=== PATIENT | female | born 1980 | race Caucasian/White ===

== ENCOUNTER 2019-08-23 15:54 | Observation (INO) | payer OTHER ==
--- NOTE | 2019-08-23 16:24 | PDOC ---
History of Present Illness - General Chief Complaint: Chest Pain Stated Complaint: CHEST TIGHTNESS Time Seen by Provider: 08/23/19 16:23 Past History - Past Medical History Allergies/Adverse Reactions: Allergies Allergy/AdvReac Type Severity Reaction Status Date / Time iv contrast Allergy Uncoded 08/23/19 16:18 Home Medications: Ambulatory Orders Aspirin 1 tab PO DAILY 08/23/19 Atorvastatin Calcium 80 mg PO HS 08/23/19 Clopidogrel Bisulfate [Clopidogrel] 75 mg PO DAILY 08/23/19 Empagliflozin [Jardiance] 1 tab PO DAILY 08/23/19 Empagliflozin/Metformin HCl [Synjardy Xr 5-1,000 mg Tablet] 2 tab PO DAILY 08/22 Heart Score/ECG Review - History History: Moderately suspicious - Electrocardiogram EKG: Normal - Age Age: </= 45 - Risk Factors Risk Factors Heart Score: Yes Hx Hypertension, Yes Hx Diabetes, Yes Positive family hx of cardiac disease, Yes Hx Obesity Based on the list above the patient has:: >/=3 risk factors or Hx atherosclerotic disease - Troponin Troponin: </= normal limit - Score Heart Score - Total: 3 ED Treatment Course - LABORATORY CBC & Chemistry Diagram: 08/23/19 16:35 08/23/19 16:35 Medical Decision Making - Medical Decision Making 08/23/19 16:26 HPI: 39yo F hx CAD (s/p 3 stents in 2018 at [facility]), smoking (5/day), asthma (never used meds), HTN (noncompliant with meds x>1yr due to making it drop her BP too much), FHx early CAD, and DM (noncompliant with meds x1mo due to thinking she was ) presents with 1hr of gradual onset at rest at 1430 diffuse nonradiating chest pressure intermittent improving, with associated SOB/WATSON, pinch of top of L head (resolved), lightheadedness (resolved), and tingling in b /l feet and L hand (improving), all s/p 20 shots of unknown hard alcohol last PM and poor sleep; similar sx to 02/2019 when she was dehydrated. Pt states normally drinks rarely, never this much. Pt took 2 baby aspirin (162 total) today, one at 1100 and one at 1300, because she "felt tired." No other meds taken today. Eating and drinking normally. Denies hx DVT/PE, leg swelling, calf tenderness, recent travel, recent surgeries, diaphoresis, drug use, N/V, cough, recent illness, abdominal pain, back pain, syncope, dizziness, fever, chills, vision changes, palpitations. PCP - unknown name at [facility] ROS: Constitutional: Positive for fatigue. Negative for chills, fever, diaphoresis. HENT: Negative for sore throat, rhinorrhea, congestion. Eyes: Negative for visual disturbance. Respiratory: Positive for shortness of breath. Negative for cough, and wheezing. Cardiovascular: Positive for chest pain. Negative for palpitations, and leg swelling. Gastrointestinal: Negative for abdominal pain, blood in stool, constipation, diarrhea, nausea, and vomiting. Genitourinary: Negative for dysuria, flank pain, and hematuria. Musculoskeletal: Negative for myalgias, back pain, and neck pain. Skin: Negative for rash. Neurological: Positive for headache, light-headedness, tingling. Negative for dizziness, vertigo, syncope, weakness. Psychiatric/Behavioral: Negative for behavioral problems and confusion. PE: Gen: Sleepy but alert, NAD, tired-appearing. HEENT: PERRL, EOMI, MMM, NCAT. No conjunctival pallor. Sclera are non-icteric. CV: Regular rate and rhythm. No murmurs, rubs, or gallops. PULM: No resp distress. CTAB, no wheezes, rales, or rhonchi. ABD: soft, NT/ND, no rebound tenderness or guarding, no CVA tenderness. BACK: No TTP of c/t/l-spine. No step-offs or deformities. MSK: No bony deformities. 2+ pulses in all extremities. NEURO: AAOx3. PERRL. No gross CN deficits. Strength and sensation grossly intact throughout. EXTREMITIES: No cyanosis. No clubbing. No edema. No calf tenderness. PSYCH: Normal mood and thought pattern. Odd affect. SKIN: Warm and dry. Normal capillary refill. No rashes. No jaundice. MDM: 39yo F hx CAD (s/p 3 stents in 2018 at [facility]), smoking (5/day), asthma (never used meds), HTN (noncompliant with meds x>1yr due to making it drop her BP too much), FHx early CAD, and DM (noncompliant with meds x1mo due to thinking she was ) presents with 1hr of gradual onset at rest at 1430 diffuse nonradiating chest pressure intermittent improving, with associated SOB/WATSON, pinch of top of L head (resolved), lightheadedness (resolved), and tingling in b /l feet and L hand (improving), all s/p 20 shots of unknown hard alcohol last PM and poor sleep; similar sx to 02/2019 when she was dehydrated. Hemodynamically stable, afebrile, lungs CTAB, sleepy but alert. Ddx: ACS/FL (HEART score 3 due to RFs and story), arrhythmia, CHF, PE (low risk , r/o w/D-dimer), pancreatitis, costochondritis, gastritis, cholelithiasis/ cystitis, intox, infection, metabolic derangement, anemia -EKG -CXR -CBC,CMP,Coags,Cardiac profile,Lipase, , d-dimer, BNP -Nitro -IVF -Pain management -Dispo: pending workup and reassessment, likely admit tele obs 08/23/19 18:31 EKG reviewed: NSR, 71bpm, normal axis, normal intervals, no e/o acute ischemia. CXR reviewed: no acute pathology Labs reviewed. No concerning findings. Pain improved s/p nitro. Pt refuses admission at this time due to children at home. Would like to wait for 2nd troponin result and then decide admission vs AMA. 08/23/19 18:48 Pt agrees to be admitted. Microblog sent. 08/23/19 19:04 Pt signed out to Dr Leslie and night team. Discharge - Discharge Information Problems reviewed: Yes Clinical Impression/Diagnosis: Chest pain Condition: Improved - Admission Yes - Follow up/Referral Referrals: ON STAFF,NOT [Primary Care Provider] - - Patient Discharge Instructions - Post Discharge Activity
[2019-08-23 16:34] VITALS: TEMP 98; BMI 30.5
[2019-08-23] MEDS ORDERED: NITROGLYCERIN 2% OINTMENT - 1GM PACKET TD ONE (16:37)
[2019-08-23 16:54] LABS: BASO % 0.6 % (0-2.0); EOS % 0.5 % (0-4.5); HEMATOCRIT 38.1 % (32.4-45.2); HEMOGLOBIN 13.1 GM/dL (10.7-15.3); LYMPH % 27.2 % (8-40); MCHC 34.4 g/dl (32.0-36.0); MEAN CELL VOLUME 90.2 fl (80-96); MEAN PLT VOLUME 9.9 fl (7.5-11.1); MONO % 7.1 % (3.8-10.2); NEUT % 64.6 % (42.8-82.8); PLATELET COUNT 232 K/MM3 (134-434); RBC 4.23 M/mm3 (3.60-5.2); RDW 13.1 % (11.6-15.6)
[2019-08-23 17:12] VITALS: BP 123/75; PULSE 71
[2019-08-23 17:24] LABS: N-TERMINAL BNP 48.4 pg/ml (5-125); PROTHROMBIN TIME (PATIENT) 11.8 SEC (9.7-13.0)
[2019-08-23 17:25] LABS: ACTIVATED PTT 24.6 SECONDS (25.2-36.5)
[2019-08-23 17:33] LABS: ALBUMIN 3.5 g/dl (3.4-5.0); BILIRUBIN,TOTAL 0.3 mg/dL (0.2-1); CALCIUM 8.7 mg/dL (8.5-10.1); CREATININE 0.6 mg/dL (0.55-1.3); POTASSIUM 3.9 mmol/L (3.5-5.1); TOT PROT 7.1 g/dl (6.4-8.2)
[2019-08-23 17:56] LABS: LIPASE 185 U/L (73-393)
[2019-08-23] MEDS ORDERED: SODIUM CHLORIDE 0.9% 1000 ML INFUS.BAG IV ONE (18:34)
--- NOTE | 2019-08-23 18:56 | PDOC ---
Attending Attestation - Resident Resident Name: WilliamScott - ED Attending Attestation I have performed the following: I have examined & evaluated the patient, The case was reviewed & discussed with the resident, I agree w/resident's findings & plan - HPI HPI: 08/23/19 18:56 39yo F hx CAD (s/p 3 stents in 2018 at [facility]), smoking (5/day), asthma (never used meds), HTN (noncompliant with meds x>1yr due to making it drop her BP too much), FHx early CAD, and DM (noncompliant with meds x1mo due to thinking she was ) presents with 1hr of gradual onset at rest at 1430 diffuse nonradiating chest pressure intermittent improving, with associated SOB/WATSON, pinch of top of L head (resolved), lightheadedness (resolved), and tingling in b /l feet and L hand (improving), all s/p 20 shots of unknown hard alcohol last PM and poor sleep; similar sx to 02/2019 when she was dehydrated. Pt states normally drinks rarely, never this much. Pt took 2 baby aspirin (162 total) today, one at 1100 and one at 1300, because she "felt tired." No other meds taken today. Eating and drinking normally. Denies hx DVT/PE, leg swelling, calf tenderness, recent travel, recent surgeries , diaphoresis, drug use, N/V, cough, recent illness, abdominal pain, back pain, syncope, dizziness, fever, chills, vision changes, palpitations. - Physicial Exam PE: 08/23/19 18:56 Agree with the resident's HPI and PE as documented in the electronic medical record. NAD, malaised appearing. EOMI, PERRL, nl conjunctiva, anicteric; neck supple. lungs clear, RRR, no murmur. abdomen soft nontender. no rebound, guarding. Back nontender. LEONARDO x4, no focal neuro deficits. No peripheral edema. normal color for ethnicity, WWP. speech clear. - Medical Decision Making 08/23/19 18:55 Vital Signs Temp Pulse Resp BP Pulse Ox 98 F 71 17 123/75 99 08/23/19 16:21 08/23/19 17:11 08/23/19 17:11 08/23/19 17:11 08/23/19 17:11 DDx chest pain: ACS, coronary vasospasm, printzmetal's, NSTEMI, arrhythmia, unstable angina, PE, dissection, PUD, esophageal spasm, GERD, gastritis, costochondritis, pneumonia, pleurisy, pericarditis/myocarditis. dehydration, electrolyte/metabolic derangements. PTX, CHF, pulmonary edema, pleurisy, pneumonia, viral syndrome. effusion. anemia, electrolyte/metabolic derangements. drug intox, sympathomimetic agent labs and lytes wnl. trop is neg, reassuring, needs serials/ekg and tele monitor. EKG normal sinus rhythm, no interval abnormalities, narrow QRS, ST and T wave segments and morphology normal. Nonspecific T wave abnormalities, no prior Chest pain HEART score 3 which denotes low risk and probability for ACS, risk of 1.7% of MACE at 4-6 wks Given risk factors including comorbidities, gender, family and tobacco use, pt has higher risk, given also prior history of CAD with PCI Plan for admit observation, possible Stress testing, to r/o ischemia, CORINNA, serial trops and EKG/tele monitoring. s/p ASA, pain controlled, discussion with patient and family at bedside, made aware of impression and plan, questions answered. 08/23/19 18:55 08/23/19 18:57 08/23/19 18:58 Heart Score/ECG Review - History History: Moderately suspicious - Electrocardiogram EKG: Normal - Age Age: </= 45 - Risk Factors Risk Factors Heart Score: Yes Hx Diabetes, Yes Positive family hx of cardiac disease, Yes Hx Obesity Based on the list above the patient has:: >/=3 risk factors or Hx atherosclerotic disease - Troponin Troponin: </= normal limit - Score Heart Score - Total: 3 #1 ECG reviewed & interpreted by me at: 16:10 General ECG Interpretation: Sinus Rhythm, Normal Rate, Normal Intervals Compared to previous ECG there are: Previous ECG unavail 08/23/19 18:55 EKG normal sinus rhythm 71 bpm, no interval abnormalities, narrow QRS, ST and T wave segments and morphology normal. Nonspecific T wave abnormality in III (TWI ) - no prior.
--- NOTE | 2019-08-23 19:10 | PDOC ---
*Physical Exam - Vital Signs Last Vital Signs Temp Pulse Resp BP Pulse Ox 98 F 71 17 123/75 99 08/23/19 16:21 08/23/19 17:11 08/23/19 17:11 08/23/19 17:11 08/23/19 17:11 ED Treatment Course - LABORATORY CBC & Chemistry Diagram: 08/23/19 16:35 08/23/19 16:35 - ADDITIONAL ORDERS Additional order review: Laboratory Results 08/23/19 08/23/19 08/23/19 16:35 16:35 16:35 PT with INR 11.80 INR 1.00 PTT (Actin FS) 24.6 L D-Dimer 441 Sodium Potassium Chloride Carbon Dioxide Anion Gap BUN Creatinine Est GFR (CKD-EPI)AfAm Est GFR (CKD-EPI)NonAf Random Glucose Calcium Total Bilirubin AST ALT Alkaline Phosphatase Creatine Kinase Troponin I B-Natriuretic Peptide Total Protein Albumin Lipase Serum , Qual Negative 08/23/19 08/23/19 16:35 16:35 PT with INR INR PTT (Actin FS) D-Dimer Sodium 136 Potassium 3.9 Chloride 103 Carbon Dioxide 24 Anion Gap 10 BUN 12.0 Creatinine 0.6 Est GFR (CKD-EPI)AfAm 134.01 Est GFR (CKD-EPI)NonAf 115.63 Random Glucose 202 H Calcium 8.7 Total Bilirubin 0.3 AST 20 ALT 42 Alkaline Phosphatase 63 Creatine Kinase 53 Troponin I < 0.02 B-Natriuretic Peptide 48.4 Total Protein 7.1 Albumin 3.5 Lipase 185 Serum , Qual 08/23/19 16:35 RBC 4.23 MCV 90.2 MCHC 34.4 RDW 13.1 MPV 9.9 Neutrophils % 64.6 Lymphocytes % 27.2 Monocytes % 7.1 Eosinophils % 0.5 Basophils % 0.6 Medical Decision Making - Medical Decision Making 08/23/19 19:10 Signed out to me by Dr. Perkins. 39F with CAD s/p 3x stenting, HTN, DM, asthma, smoking, has new onset chest pressure with SOB today after drinking heavily last night. Took 2x ASA today. Eval for ACS done, VS WNL. ECG shows NSR with TWI in III but no ischemic changes. Trop negative, low BNP. Discussed case with Dr. Dozier with admitting team, good for tele/obs under Dr. Rosas. 08/23/19 20:12 Admitting team came to evaluate, discussed treatment plan with patient and after patient may want to AMA, admitting team will continue to address concerns. Discharge - Discharge Information Problems reviewed: Yes Clinical Impression/Diagnosis: Chest pain Qualifiers: Chest pain type: precordial pain Qualified Code(s): R07.2 - Precordial pain Condition: Improved - Follow up/Referral Referrals: ON STAFF,NOT [Primary Care Provider] - - Patient Discharge Instructions - Post Discharge Activity
--- NOTE | 2019-08-23 19:25 | PN ---
Teaching Attending Note Name of Resident: Fei Dozier ATTENDING PHYSICIAN STATEMENT I saw and evaluated the patient. I reviewed the resident's note and discussed the case with the resident. I agree with the resident's findings and plan as documented. SUBJECTIVE: Patient is a 39 year old woman with a PMH of CAD (s/p 3 stents in 2018 at [facility]), Alcohol abuse, Tobacco use, Asthma, HTN, NIDDM, History of nonadherence to treatment and Family history of early CAD presents with 1 hour of gradual onset at rest at 1430 diffuse nonradiating intermittent chest pressure. There was associated SOB/WATSON, pinch of top of L head, lightheadedness and tingling in both feet and left hand. Consumed 20 shots of unknown hard alcohol last night and didnot sleep well. Had similar symptoms in 02/2019 when she was dehydrated. Patient took 2 baby Aspirins today because she "felt tired. " No other meds taken today. Eating and drinking normally. Denies prior DVT/PE, leg swelling, calf tenderness, recent travel, recent surgeries, diaphoresis, nausea, vomiting, cough, recent illness, abdominal pain, back pain, syncope, dizziness, fever, chills, vision changes or palpitations. Denies illicit drug use. No sick contacts or recent travels. OBJECTIVE: Alert Vital Signs Period Temp Pulse Resp BP Sys/Pulido Pulse Ox Last 24 Hr 98 F 64-71 17-22 123-125/75-90 99-100 HEENT: No Jaundice, eye redness or discharge, PERRLA, EOMI. Normocephalic, atraumatic. External ears are normal and hearing is grossly intact. No nasal discharge. Neck: Supple, nontender. No palpable adenopathy or thyromegaly. No JVD Chest: Good effort. Clear to auscultation and percussion. Heart: Regular. No S3, rub or murmur Abdomen: Not distended, soft, nontender and no HSM. No rebound or guarding. Normal bowel sounds. Ext: Peripheral pulses intact. No leg edema. Skin: Warm and dry. No petechiae, rash or ecchymosis. Neuro: Alert. Oriented x3. CN 2-12 grossly intact. Sensation grossly intact in all four extremities and DTR are symmetric. Psych: Appropriate mood and affect. Good insight. Current Medications Generic Name Dose Route Start Last Admin Trade Name Marcelo PRN Reason Stop Dose Admin Nitroglycerin 0.5 inch 08/23/19 16:37 08/23/19 16:43 Nitro-Bid 2% Paste - TD 08/23/19 16:38 0.5 inch ONCE ONE Administration Sodium Chloride 1,000 ml 08/23/19 18:34 Normal Saline - IV 08/23/19 18:35 ONCE ONE Home Medications Medication Instructions Recorded Aspirin 1 tab PO DAILY 08/23/19 Atorvastatin Calcium 80 mg PO HS 08/23/19 Clopidogrel Bisulfate [Clopidogrel] 75 mg PO DAILY 08/23/19 Empagliflozin [Jardiance] 1 tab PO DAILY 08/23/19 Empagliflozin/Metformin HCl 2 tab PO DAILY 08/23/19 [Synjardy Xr 5-1,000 mg Tablet] Abnormal Lab Results 08/23/19 08/23/19 16:35 16:35 PTT (Actin FS) 24.6 L Random Glucose 202 H ASSESSMENT AND PLAN: 1. Chest pain - Patient has significant risk factors for ACS. Got Nitropaste in the ER and pain has resolved. Initial troponin is negative. EKG shows NSR with T wave inversion in III and no ST elevation. CXR shows cardiomegaly and possible left pleural effusion. Will get urine toxicology, urinalysis, admit to telemetry to rule out ACS, get ECHO, continue statin and Aspirin and consult cardiology. Will continue comprehensive care for all of patients comorbid conditions. 2. Uncontrolled DM For now, we will hold the home diabetes drugs and implement sliding scale insulin regimen. Provide comprehensive diabetes care with patient teaching and counseling about the importance of adherence to prescribed diabetes regimen, euglycemia, eye care and foot care. 3. Tobacco Use Counseled on risks associated with tobacco use. We will provide patient all the necessary assistance to facilitate smoking cessation and prescribe Nicotine patch. 4. Obesity Counseled on the risks associated with obesity. Will provide patient all the necessary assistance, counseling and positive reinforcement to facilitate weight loss. Consult counsel. 5. Alcohol abuse - Implement [facility] alcohol withdrawal protocol and do neurochecks. Implement seizure, fall and aspiration precautions. Treat with IV Banana bag, thiamine and folic acid. Monitor and replete electrolytes (Ca,Mg,K,P ). Counseled patient about abstaining from alcohol. Will consult fire support specialist and refer to alcohol detox upon discharge. 6. Hypertension - Restart suitable outpatient antihypertensive drugs when clinically appropriate. Revise regimen to ensure [id number] excellent BP control and branch credit counselor patient on the injurious effects of uncontrolled hypertension. Nonpharmacologic measures to control hypertension like weight loss , salt restriction and exercise discussed. Importance of adherence to treatment regimen and attainment of normotension emphasized. 7. DVT prophylaxis - Lovenox 40 mg SQ q 24 hours. 8. Advance directives - Full code
--- NOTE | 2019-08-23 20:16 | PN ---
Progress Note (short form) - Note Progress Note: Patient was seen and evaluated in the ED after accepting admission. After completing initial assessment, patient stated that she wanted to leave and go to her regular hospital- [facility]. She was advised of the risks and dangers of leaving the hospital including injury and , patient accepted responsibility and signed out.
--- NOTE | 2019-08-24 09:21 | EKG ---
Test Reason : Blood Pressure : / mmHG Vent. Rate : 076 BPM Atrial Rate : 076 BPM P-R Int : 146 ms QRS Dur : 078 ms QT Int : 382 ms P-R-T Axes : 022 -14 014 degrees QTc Int : 429 ms NORMAL SINUS RHYTHM MINIMAL VOLTAGE CRITERIA FOR LVH, MAY BE NORMAL VARIANT Low precordial voltage ABNORMAL ECG WHEN COMPARED WITH ECG OF 23-AUG-2019 16:10, NO SIGNIFICANT CHANGE WAS FOUND Confirmed by Celena Nair ([id number]) on 08/24/2019 9:20:38 AM Referred By: Confirmed By:Celena Nair
--- NOTE | 2019-08-26 12:30 | EKG ---
Test Reason : Blood Pressure : / mmHG Vent. Rate : 071 BPM Atrial Rate : 071 BPM P-R Int : 142 ms QRS Dur : 076 ms QT Int : 412 ms P-R-T Axes : 033 -13 017 degrees QTc Int : 447 ms NORMAL SINUS RHYTHM CANNOT RULE OUT ANTERIOR INFARCT , AGE UNDETERMINED ABNORMAL ECG NO PREVIOUS ECGS AVAILABLE Confirmed by MD Espinosa Edward ([id number]) on 08/26/2019 12:29:21 PM Referred By: Confirmed By:Chandler Espinosa MD
== END 2019-08-23 20:17 | disposition left against medical advice (07) ==
LOC: SUPCPDRO 15:54 → JER 15:54 → JERBED 18:46 → JER 20:17
PROVIDERS: ADMIT Internal Medicine; ATTEND Internal Medicine
DX: R07.89 Other chest pain (principal); I10 Essential (primary) hypertension; E11.65 Type 2 diabetes mellitus with hyperglycemia; I25.10 Atherosclerotic heart disease of native coronary artery without angina pectoris; F17.210 Nicotine dependence, cigarettes, uncomplicated; E66.9 Obesity, unspecified; Z68.30 Body mass index [BMI] 30.0-30.9, adult; Z91.14 Patient's other noncompliance with medication regimen; Z95.5 Presence of coronary angioplasty implant and graft; Z82.49 Family history of ischemic heart disease and other diseases of the circulatory system; Z79.82 Long term (current) use of aspirin; F10.10 Alcohol abuse, uncomplicated
CPT/HCPCS: 36415; 71045-TC-FY; 80053; 82550; 83690; 83880; 84484; 84703; 85025; 85379; 85610; 85730; 93005; 93010; 99285-25; G0378